=== PATIENT | male | born 1965 | race Caucasian/White ===

== ENCOUNTER 2018-06-09 22:00 | Inpatient (IN) | payer BC ==
[~2018-06-09] VITALS: Ht 185.4 cm; Wt 162.4 kg
[~2018-06-09 22:00] MED LIST: ASPIRIN325 PO; BACTRIM DS TAB1 EACH PO; KEFLEX500 MG PO; NORCO 5-325 TA1 EACH PO
[2018-06-09 22:03] VITALS: BP 203/121
[2018-06-09 22:25] LABS: ABSOLUTE BASOPHILS 0.1 thou/uL (0.0-0.2); ABSOLUTE EOSINOPHILS 0.3 thou/uL (0.0-0.7); ABSOLUTE LYMPHOCYTES 3.1 thou/uL (0.8-5.3); ABSOLUTE MONOCYTES 0.9 thou/uL (0.0-1.2); ABSOLUTE NEUTROPHILS 5.4 thou/uL (1.6-8.1); BASOPHILS 0.9 %; EOSINOPHILS 3.4 %; HEMATOCRIT 49.5 % (42.0-52.0); HEMOGLOBIN 16.7 gm/dL (14.0-18.0); LYMPHOCYTES 32.1 %; MCH 30.4 pg (26.0-34.0); MCHC 33.7 g/dL (28.0-37.0); MCV 90.2 fL (80.0-100.0); MONOCYTES 8.7 %; MPV 7.8 fl. (7.2-11.1); NUCLEATED RBCS 0 /100WBC; PLATELET COUNT* 333 thou/uL (150-400); POLYS 54.9 %; RBC 5.49 mil/uL (4.50-6.00); RDW-CV 13.4 % (10.5-14.5); WBC 9.8 thou/uL (4.0-11.0)
[2018-06-09 22:32] LABS: ANION GAP 3 mmol/L (7-16); BUN 8 mg/dL (7-18); CALCIUM 9.8 mg/dL (8.5-10.1); CHLORIDE 102 mmol/L (98-107); CO2 32 mmol/L (21-32); CREATININE 1.1 mg/dL (0.6-1.3); GLUCOSE 122 mg/dL (70-99); POTASSIUM 3.9 mmol/L (3.5-5.1); SODIUM 137 mmol/L (136-145)
[2018-06-09 22:43] LABS: ALKALINE PHOSPHATASE 93 U/L (46-116); LIPASE 163 U/L (73-393); MAGNESIUM 1.9 mg/dL (1.8-2.4); NT-PRO BRAIN NAT PEPTIDE 130 pg/mL (<300); SGOT 18 U/L (15-37); SGPT 21 U/L (30-65); TOTAL BILIRUBIN 0.5 mg/dL (<0.1-1.0); TROPONIN-I LEVEL <0.06 ng/mL (<0.06)
[2018-06-09 23:30] VITALS: BP 128/103
[2018-06-09 23:55] VITALS: BP 161/107
[2018-06-10 04:00] VITALS: BP 108/54
[2018-06-10 05:11] VITALS: BP 108/54
--- NOTE | 2018-06-10 07:36 | NUR ---
Pt states he has been experiencing palpitations intermittently over the last few weeks/months, and supected that he had Afib; but states any time he's seen a doctor about it, his heart rhythm had been regular. States he does not take any medications at home. VSS. HR controlled on diltiazem gtt, which is currently at 5 mg/hr. Pt noted to have large patches of scaly skin to bilat ankles which extend over tops of feet. States this condition has been going on intermittently for over a year. Has seen beater boss for condition and has used various topical applications in the past, but condition always returns. Will continue to monitor.
[2018-06-10 08:00] VITALS: BP 124/76
[2018-06-10 10:21] LABS: CHOLESTEROL 191 mg/dL (<200); HDL CHOLESTEROL 46 mg/dL (>40); LDL CHOLESTEROL 127 mg/dL (<100); TC:HDL 4.2 Ratio (Not establshd); TRIGLYCERIDE 90 mg/dL (<150); VLDL 18 mg/dL (<40)
[2018-06-10 10:29] LABS: SERUM ASSESSMENT Clear
[2018-06-10 11:26] VITALS: BP 151/93
--- NOTE | 2018-06-10 12:41 | EKG ---
[place] [address] ELECTROCARDIOGRAM REPORT Name: ASIAADAIR Room: [address] [facility]#: [id number] Admission: 06/09/18 Attend Phys: Shirley Murguia MD Discharge: Date of : 61 Report #: [id number] THIS REPORT FOR: //name// [facility] ED Test Date: 2018-06-09 Test Time: 22:04:23 Pat Name: ADAIR BETANCOURT Department: Room: Gender: Philosophy Professor: [facility] : 1965 Requested By: Ish Rajan Order Number: [id number] MD: Adan Gilliam Measurements Intervals [place] Rate: 110 P: DE: QRS: -9 QRSD: 100 T: 18 QT: 318 QTc: 431 Interpretive Statements Atrial fibrillation Paired ventricular premature complexes Compared to ECG 02/14/2017 13:51:20 Ventricular premature complex(es) now present Sinus rhythm no longer present Electronically Signed On 06-10-2018 12:41:21 CDT by Adan Gilliam [email or web address] <ELECTRONICALLY SIGNED> By: Adan Gilliam MD, [facility] 06/10/18 1241 2204 Adan Gilliam MD, [facility] /EPI
[2018-06-10] MEDS ORDERED: XARELTO20 MG PO (13:25)
[2018-06-10] MEDS ORDERED: CARDIZEM CD180 MG PO (13:26)
[2018-06-10 14:04] VITALS: BP 151/93
--- NOTE | 2018-06-29 10:51 | CON ---
[address] [address] CONSULTATION Name: ASIAADAIR Room: [address] .R.#: [id number] Admission: 06/09/18 Attend Phys: Shirley Murguia MD Discharge: 06/10/18 Date of : 61 Report #: [id number] THIS REPORT FOR: //name// CC: KIEL physician/PCP Shirley Murguia DATE OF SERVICE: 06/10/2018 CHIEF COMPLAINT: Chest pain and atrial fibrillation. HISTORY OF PRESENT ILLNESS: The patient is a 52-year-old man who presented with resting onset chest discomfort 10-15 minutes long, left-sided. It was associated with elevated blood pressures nearing 200 mm systolic. He was noted to be in atrial fibrillation with a rapid ventricular response. He was placed on IV Cardizem. Blood pressure and heart rate improved and he actually overnight converted to a sinus rhythm and this morning he is asymptomatic. He had been having some paroxysms of symptoms in the past and actually had been in the Emergency Room, but had converted apparently before being hooked up to telemetry so this is not necessarily a new problem. He denies neuro symptoms of numbness, weakness, slurred speech or visual changes. He knows about his blood pressure, but in the past it has been normal at times. PAST MEDICAL HISTORY: He is previously seen for high blood pressure with Dr. Thomas but then has been without primary care after this. He had seen Dr. Montes most recently. He has no documented history of heart disease, but because of elevated blood pressure, had some abnormal findings on an ECG and was supposed to have an outpatient echo test and follow up with our office, but was unable to keep the appointment. He has a history of GERD. He has no history of GI or bleeding. He has a history of morbid obesity. FAMILY HISTORY: Positive for coronary artery disease. Mother had bypass surgery in her 50s and has a sibling actually with AFib. MEDICATIONS: He is on no chronic medications. SOCIAL HISTORY: He is . There is no tobacco or ethanol history. ALLERGIES: HE HAS ALLERGIES TO SULFA. REVIEW OF SYSTEMS: [place] [address] CONSULTATION Name: ADAIR BETANCOURT Zena Room: [address]#: [id number] Admission: 06/09/18 Attend Phys: Shirley Murguia MD Discharge: 06/10/18 Date of : 61 Report #: [id number] CENTRAL NERVOUS SYSTEM: No seizure or paralysis. GENERAL: No weight loss or fevers. RESPIRATORY: Positive cough, no sputum production. No asthma. CARDIOVASCULAR: Positive palpitations, positive chest discomfort, positive dyspnea, positive mild edema. ENDOCRINE: No diabetes or thyroid problems. GASTROINTESTINAL: Positive heartburn. No history of ulcers, vomiting blood, jaundice, hepatitis. GENITOURINARY: No dysuria or hematuria. HEMATOLOGIC: No anemia or bleeding disorders. ALLERGIES: Positive seasonal allergies. Positive remote history of mild asthma. PSYCHIATRIC: No depression. Positive anxiety. MUSCULOSKELETAL: No arthritis, connective tissue disease. SKIN: Positive rash. EYES: He does use glasses. EARS, NOSE, THROAT AND MOUTH: No decreased hearing, bleeding from nose or dentures. PHYSICAL EXAMINATION: VITAL SIGNS: Blood pressure is 151/93, pulse 71 in sinus rhythm, temperature 36.4, weight 162 kilograms. GENERAL: Pleasant, obese, middle-aged male. He is alert, in no apparent distress. HEENT: Eyes are intact. No facial asymmetry. Sclerae are anicteric. Mouth: Oral mucosa moist. Tongue is midline. NECK: Supple. No jugular venous distention. Upstrokes are normal. CARDIOVASCULAR: Regular. I cannot hear a murmur. LUNGS: Clear to auscultation. ABDOMEN: Soft and nontender. EXTREMITIES: There is no peripheral edema. NEUROLOGIC: There are no focal deficits. LABORATORY DATA: Electrocardiogram shows atrial fibrillation with normal ST segments on presentation and heart rate was 110. LABORATORY DATA: Hemoglobin 16.7, white blood cell count 9.8, platelet count 333,000. Sodium 137, potassium 3.9, chloride 102, CO2 32, BUN is 8, creatinine is 1.1, GFR ____. AST is 18, ALT is 21, total CK is 90. Troponin I is 0.06. NT-proBNP is 130. Total cholesterol is 191. LDL is 127, VLDL is 18, HDL is 46. Lipase is 163. TSH mildly abnormal at 3.805. Free T4 is normal at 0.86. Chest x-ray shows no acute cardiopulmonary process. IMPRESSION: 1. Paroxysmal atrial fibrillation. This could be related to a lung process versus underlying heart disease. He has converted with IV Cardizem. It is [address] [address] CONSULTATION Name: ADAIR BETANCOURT Room: [address]#: [id number] Admission: 06/09/18 Attend Phys: Shirley Murguia MD Discharge: 06/10/18 Date of : 61 Report #: [id number] reasonable to switch him to p.o. Cardizem and we can conclude our cardiac workup as an outpatient. Based on his frequency of symptoms, he does have some thromboembolic risk. I would like to for at least 30 days treat him with Xarelto 20 mg daily for thromboembolic prophylaxis. 2. Chest discomfort. He does have cardiovascular risk factors including high blood pressure, unknown lipid status and family history, so I ordered a treadmill nuclear stress test. I deferred any aspirin as he is going to be fully anticoagulated. 3. Hypertension. I am hoping to treat his blood pressure with the Cardizem as well. 4. Morbid obesity. Weight loss is recommended. He may need an evaluation for sleep apnea as an outpatient. <ELECTRONICALLY SIGNED> By: Adan Gilliam MD, FACC 06/29/18 1051 1156 [id number] Gilliam MD, FACC /nt
== END 2018-06-10 14:45 | disposition home or self-care (01) | DRG 309 ==
LOC: M.ERS 22:00 → M.TBA-ER 23:02 → M.2W 23:40
PROVIDERS: Emergency Medicine Emergency Medical Services; Internal Medicine; ADMIT Internal Medicine
DX: I48.0 Paroxysmal atrial fibrillation (principal); Z68.42 Body mass index [BMI] 45.0-49.9, adult; J45.909 Unspecified asthma, uncomplicated; E66.01 Morbid (severe) obesity due to excess calories; F41.9 Anxiety disorder, unspecified; I10 Essential (primary) hypertension; Z79.82 Long term (current) use of aspirin; Z88.2 Allergy status to sulfonamides; Z82.49 Family history of ischemic heart disease and other diseases of the circulatory system

== ENCOUNTER → 2018-09-13 | Outpatient (CLI) | payer BC ==
[~2018-09-13] MED LIST changes: +CARDIZEM CD180 MG PO; +XARELTO20 MG PO
--- NOTE | 2018-09-17 23:06 | SLEEP ---
[address] [address] SLEEP STUDY REPORT Name: ASIAADAIR Zena Room: [facility]#: [id number] Admission: 09/13/18 Attend Phys: Mary Pulido RN Discharge: Date of : 61 Report #: [id number] THIS REPORT FOR: //name// CC: KIEL physician/PCP Mary BRICE This study has been reviewed in its entirety by a board certified sleep specialist DATE OF SERVICE: 09/13/2018 ATTENDING PHYSICIAN: BABS Murry The patient is a 53-year-old who weighs 350 pounds and is 74 inches tall with a BMI of 44.1. The patient's [place] score was 6. The patient underwent a diagnostic sleep study at [facility]. During the night study, the patient spent 408 minutes in bed and slept for 176 minutes with a sleep efficiency of 43%, which is low. The patient's sleep latency was 27 minutes with a REM latency of 198 minutes. Overall, sleep architecture showed normal stage I and stage II sleep, increased slow wave and reduced REM sleep. During the night study, the patient had no apneas, but 103 hypopneas. The patient's apnea hypopnea index was 35 per hour with a REM index of 39 per hour and a supine index of 31 per hour. EKG monitoring revealed average heart rate of 59 beats per minute with a maximum of 75 beats per minute. No sustained arrhythmias were observed. PLMS were seen at an index of 73 per hour and 13 per hour caused EEG arousals. Nocturnal oximetry study revealed an average oxygen saturation of 95% with a lowest of 77%. 4.6 minutes were spent in oxygen saturation of less than 90%. This was noticeable during REM sleep. Due to reduced sleep time, CPAP could not be initiated. IMPRESSION: 1. Severe sleep apnea-hypopnea syndrome at an AHI of 35 per hour. 2. Nocturnal hypoxia secondary to obstructive sleep apnea. 3. Severe periodic limb movements of sleep. 4. Reduced sleep efficiency resulting from sleep onset and [place] [address] SLEEP STUDY REPORT Name: ASIAADAIR L Room: [facility]#: [id number] Admission: 09/13/18 Attend Phys: Mary Pulido RN Discharge: Date of : 61 Report #: [id number] RECOMMENDATIONS: 1. The patient should return to the sleep lab for CPAP titration study. 2. Once optimal CPAP pressure is achieved, then follow up in 4-6 weeks to assess compliance with CPAP and to document clinical improvement. 3. Weight loss is strongly advised. 4. Avoid [employer] depressants. 5. Cautioned regarding driving until symptoms of sleep apnea resolved with the use of CPAP. 6. The patient should also be further evaluated for symptoms of restless legs during the day. 7. If the patient's insomnia is a chronic condition and it should be evaluated and treated according to the etiology. <ELECTRONICALLY SIGNED> By: Robert Corrales MD 09/17/18 2306 1105 [id number] Corrales MD /nt
== END ==
LOC: M.SLEEPLAB 21:00
DX: G47.33 Obstructive sleep apnea (adult) (pediatric) (principal); R09.02 Hypoxemia; G47.61 Periodic limb movement disorder